=== PATIENT | female | born 1970 | race Caucasian/White ===

== ENCOUNTER 2018-11-27 23:01 | Emergency (ER) | payer OTHER | END 2018-11-28 01:10 | disposition home or self-care (01) | LOC: JER 11-28 01:10 | PROC: 3E0233Z Introduction of Anti-inflammatory into Muscle, Percutaneous Approach (ICD-10-PCS; principal; 2018-11-27) | DX: M54.42 Lumbago with sciatica, left side (principal); R73.03 Prediabetes ==